=== PATIENT | male | born 1970 | race American Indian/Alaskan Native ===

== ENCOUNTER 2022-05-12 10:48 | Emergency (ER) | payer MEDICARE, MEDICAID ==
[2022-06-05 15:13] LABS: ANION GAP 10.9 mEq/L (7-13); CHLORIDE,CL 104 mmol/L (98-107); ESTIMATED GFR 90 mL/min (>=60); SODIUM,NA 141 mmol/L (136-145)
== END 2022-05-12 12:41 | disposition home or self-care (01) ==
LOC: DL.ED 10:48
DX: G40.909 Epilepsy, unspecified, not intractable, without status epilepticus (principal)
CPT/HCPCS: 36415; 80053; 81001; 82550; 85025; 86140; 99284